=== PATIENT | female | born 1955 | race Caucasian/White ===

== ENCOUNTER 2018-10-10 21:54 | Inpatient (IN) | payer OTHER ==
[~2018-10-10] VITALS: Ht 167.6 cm; Wt 102.3 kg
[2018-10-10 21:58] VITALS: Ht 167.6 cm; Wt 102.3 kg
--- NOTE | 2018-10-10 21:58 | NUR ---
PT BIB SURGICAL RN WITH C/C OF CHEST PAIN X 2 HRS RADIATING TO R NECK UNPROVOKED. [facility] GAVE ASPRINE AND ONE NITRO PLACED 20GAUGE TO RIGHT FOREARM. PT EXPRESSED MILD NAUSEA AT TIME DENEIS CAURRENTLY. DENIES RECENT SICKNESS VOMITING OR DIAHRREA. PT A/O X 4 SPEECH MOOD AFFECT WNL, RESPIRATIONS E/U 5/10 PAIN TO MID CHEST. SPEAKS IN CLEAR AND CONCISE SENTENCES. SKIN WARM AND DRY. VERLAIZED HX OF DM HTN, ANXIETY. PT PLACED ON HEAD BANDER AND LINER OPERATOR EKG IN PROCESS. WILL CONTINUE TO MONITOR AND AWAITE MSE.
--- NOTE | 2018-10-10 22:04 | NUR ---
DR JAMES AT BEDSIDE
[2018-10-10 22:35] LABS: BASOPHIL % 0.7 % (0-2); RED CELL DISTRIBUTION WIDTH 13.9 % (11.5-14.5)
[2018-10-10 22:36] LABS: PLATELET COUNT 509 x10^3mcL (130-400)
[2018-10-10 22:47] LABS: CALCIUM 8.7 mg/dL (8.5-10.1); CARBON DIOXIDE 27.9 mmol/L (21-32); CHLORIDE SERUM 102 mmol/L (98-107); CREATININE SERUM 0.9 mg/dL (0.6-1.0); GFR1 > 60 mL/min; GLUCOSE SERUM 111 mg/dL (74-106); POTASSIUM SERUM 3.9 mmol/L (3.5-5.1); SODIUM SERUM 139 mmol/L (136-145)
[2018-10-10 22:51] LABS: ALKALINE PHOSPHATASE 141 U/L (46-116); ALT/SGPT 44 U/L (14-59); AST/SGOT 90 U/L (15-37); BILIRUBIN TOTAL 0.3 mg/dL (0.20-1.00); LIPASE 446 IU/L (73-393)
[2018-10-10 22:52] LABS: ALBUMIN 3.2 g/dL (3.4-5.0); TOTAL PROTEIN, SERUM 8.9 g/dL (6.4-8.2)
[2018-10-11] MEDS ORDERED: AMLODIPINE-OLM1 EAC1 (01:04)
[2018-10-11] MEDS ORDERED: LOT10 PO (01:05)
[2018-10-11] MEDS ORDERED: TOPROL XL25 MG PO (01:05)
[2018-10-11] MEDS ORDERED: VALACYCLOVIR H500 MG PO (01:06)
[2018-10-11] MEDS ORDERED: TRULICITY0.75 MG/0. SC (01:06)
[2018-10-11] MEDS ORDERED: VENLAFAXINE225 M1 PO (01:07)
[2018-10-11] MEDS ORDERED: VENTOLIN H0.09 MG/A1 INH (01:07)
[2018-10-11] MEDS ORDERED: XARELTO10 M1 PO (01:08)
[2018-10-11 01:29] LABS: microscopic required? YES; urine erythrocyte NEGATIVE (NEGATIVE)
[2018-10-11 01:38] LABS: AMPHETAMINE QUAL UR NONE DETECTED (See below)
--- NOTE | 2018-10-11 01:39 | NUR ---
PT SITTING WITH DAUGHTER AT BEDSIDE NAD RESPRIATONS E/U. URING COLLECTED AND SENT TO LAB. ADMITTING MD AT BEDSIDE
[2018-10-11 01:46] LABS: FREE T4 0.82 ng/dL (0.76-1.46); FREE THYROXINE INDEX 1.7 ug/dL (1.4-4.5); T4(THYROXINE) 5.1 ug/dL (4.7-13.3)
[2018-10-11 02:01] LABS: CHOLESTEROL/HDL RATIO 2.8; MAGNESIUM 2.2 mg/dL (1.8-2.4); PHOSPHOROUS 3.4 mg/dL (2.5-4.9)
[2018-10-11 02:27] LABS: T3 TOTAL 0.92 ng/mL
--- NOTE | 2018-10-11 05:07 | NUR ---
PT LYING ON LEFT SD, LAB AT BEDSIDE. NAD RESPIRATIONS E/U. WILL CONTINUE TO MONITOR
--- NOTE | 2018-10-11 06:48 | NUR ---
MEDICATION GIVEN PER ORDERS BS TAKEN. VITALS STABLE NAD RESPIRATION E/U
--- NOTE | 2018-10-11 08:00 | NUR ---
RECEIVED REPORT FROM MILY IN ER.
--- NOTE | 2018-10-11 08:00 | NUR ---
REPORT GIVEN TO [facility] TO ASSUME CARE OF PT NAD, RESPIRATIONS E/U.
--- NOTE | 2018-10-11 08:30 | NUR ---
PT ARRIVED FROM ED VIA [facility] ACCOMPANIED BY RN. Jessenia/NATHALIA. TELE#21 PLACED ON PT. RESPIRATIONS EQUAL AND UNLABORED ON RA. PT DENIES ANY CHEST PAIN/PRESSURE AT THIS TIME. IV TO RFA PATENT AND INFUSING. NO REDNESS OR SWELLING NOTED. PT DENIES ANY PAIN AT THIS TIME. WILL CONTINUE TO MONITOR. CALL LIGHT IN REACH. BED IN LOWEST POSITION.
[2018-10-11 08:37] VITALS: BP 127/67
--- NOTE | 2018-10-11 09:30 | NUR ---
PT IN BED RESTING. NO ACUTE RESP DISTRESS NOTED ON RA. PT DENIES ANY CHEST PAIN/PRESSURE AT THIS TIME. DR. ORR AT BEDSIDE INFORMING PT IS OKAY TO BE DISCHARGED LATER TODAY. PT VERBALIZED UNDERSTANDING. GIVEN PO MEDS. TOLERATED WELL. WILL CONTINUE TO MONITOR. CALL LIGHT IN REACH. BED IN LOWEST POSITION.
[2018-10-11 12:05] VITALS: BP 128/66
--- NOTE | 2018-10-11 12:33 | NUR ---
PT SITTING UP IN BED. DAUGHTER AT BEDSIDE. NO ACUTE RESP DISTRESS NOTED ON RA. PT DENIES ANY CHEST PAIN/PRESSURE AT THIS TIME. LAB AT BEDSIDE. BLOOD SUGAR CHECKED 86. NO COVERAGED NEEDED. WILL CONTINUE TO MONITOR. CALL LIGHT IN REACH. BED IN LOWEST POSITION.
[2018-10-11 13:23] VITALS: BP 128/66
[2018-10-11 16:41] VITALS: BP 133/56
--- NOTE | 2018-10-11 17:24 | NUR ---
PT SITTING UP IN BED. PT DENIES ANY CHEST PAIN/PRESSURE AT THIS TIME. PT GIVEN DISCHARGE INSTRUCTIONS. PT ENCOURAGED TO CONTINUE HOME MEDICATIONS PRESCRIBED. PT ENCOURAGED TO MAKE A FOLLOW UP APPOINTMENT WITH PCP WITHIN 1 WEEK OF DISCHARGE. PT ENCOURAGED TO MAKE AN APPOINTMENT TO SEE MANAGER TRANSIT WITHIN 1 WEEK OF DISCHARGE. PT VERBALIZED UNDERSTANDING. PT GIVEN EDUCATION REGARDING DM, XARELTO, CHEST PAIN, AND GERD. ALL QUESTIONS AND CONCERNS ADDRESSED. IV TO RAC REMOVED CATHETER INTACT. NO REDNESS OR SWELLING NOTED. TELE# 21 RETURNED TO DYEING MACHINE FEEDER FROILAN. PT TAKEN OFF FLOOR BY ÓSCAR GUTIERREZ VIA WHEELCHAIR.
== END 2018-10-11 17:26 | disposition home or self-care (01) | DRG 392 ==
LOC: ED 21:54 → DU 10-11 00:48
PROVIDERS: Emergency Medicine; ADMIT Family Medicine
DX: K21.9 Gastro-esophageal reflux disease without esophagitis (principal); N39.0 Urinary tract infection, site not specified; E44.1 Mild protein-calorie malnutrition; F32.9 Major depressive disorder, single episode, unspecified; I10 Essential (primary) hypertension; I48.2 Chronic atrial fibrillation; E11.65 Type 2 diabetes mellitus with hyperglycemia; J45.909 Unspecified asthma, uncomplicated; E66.9 Obesity, unspecified; Z68.35 Body mass index [BMI] 35.0-35.9, adult; Z98.84 Bariatric surgery status; Z79.01 Long term (current) use of anticoagulants
CPT/HCPCS: 82962; 84439; J3535; J7030; Q0092

== ENCOUNTER 2019-01-01 22:09 | Inpatient (IN) | payer OTHER ==
[~2019-01-01] VITALS: Ht 167.6 cm; Wt 103.6 kg
[~2019-01-01 22:09] MED LIST: AMLODIPINE-OLM1 EAC1; LOT10 PO; TOPROL XL25 MG PO; TRULICITY0.75 MG/0. SC; VALACYCLOVIR H500 MG PO; VENLAFAXINE225 M1 PO; VENTOLIN H0.09 MG/A1 INH; XARELTO10 M1 PO
[2019-01-01 22:13] VITALS: Ht 167.6 cm; Wt 103.6 kg
--- NOTE | 2019-01-01 22:20 | NUR ---
EKG IN PROGRESS IN TRIAGE.
[2019-01-01 23:37] LABS: PLATELET COUNT 523 x10^3mcL (130-400)
[2019-01-01 23:46] LABS: MONOCYTE 10 % (0-7); SEGMENTED NEUTROPHILS 77 % (37-75)
[2019-01-01 23:48] LABS: CARBON DIOXIDE 29.3 mmol/L (21-32); CHLORIDE SERUM 95 mmol/L (98-107); CREATININE SERUM 0.9 mg/dL (0.6-1.0); GFR1 > 60 mL/min; GLUCOSE SERUM 114 mg/dL (74-106); POTASSIUM SERUM 3.6 mmol/L (3.5-5.1); SODIUM SERUM 132 mmol/L (136-145)
[2019-01-01 23:49] LABS: PLATELET MORPHOLOGY PLATELETS INCREASED; rbc morphology (normal/abnorm) NORMAL (NORMAL)
--- NOTE | 2019-01-01 23:50 | NUR ---
PT RESTING ON GURNEY IN NAD. BREATHING EVEN AND UNLABORED. PT A&0X4, SPEAKING FULL CLEAR SENTENCES. FAMILY AT BEDSIDE. WILL CONTINUE TO MONITOR.
[2019-01-02 00:01] LABS: ALBUMIN 3.4 g/dL (3.4-5.0); ALKALINE PHOSPHATASE 111 U/L (46-116); ALT/SGPT 20 U/L (14-59); AMYLASE 74 U/L (25-115); AST/SGOT 15 U/L (15-37); BILIRUBIN TOTAL 0.5 mg/dL (0.20-1.00); LIPASE 150 IU/L (73-393); MAGNESIUM 1.8 mg/dL (1.8-2.4); T4(THYROXINE) 4.8 ug/dL (4.7-13.3)
--- NOTE | 2019-01-02 00:02 | NUR ---
LAB AT BEDSIDE.
[2019-01-02 00:08] LABS: CHOLESTEROL 118 mg/dL (<200); HDL CHOLESTEROL 67 mg/dL (40-60); TOTAL PROTEIN, SERUM 8.6 g/dL (6.4-8.2)
[2019-01-02 00:26] LABS: UA SPECIFIC GRAVITY <=1.005 (1.005-1.035); microscopic required? YES; urine erythrocyte 2+ (NEGATIVE)
[2019-01-02 00:35] LABS: AMPHETAMINE QUAL UR NONE DETECTED (See below)
--- NOTE | 2019-01-02 00:51 | NUR ---
SECOND BOLUS OF FLUID STARTED AT 0037 BP 132/55 P-73 100% 1ST BOLUS STILL RUNNING. NO S/S OF DISTRESS. PT IS AWAKE ALERT AND ORIENTED. PT GIVEN TWO WARM BLANKETS. PILLOW GIVEN FOR KNEE AND DAUGHTER AT BEDSIDE FOR COMFORT. NO S/S OF DISTRESS
[2019-01-02] MEDS ORDERED: VALACYCLOVIR H500 MG PO (01:22)
[2019-01-02] MEDS ORDERED: SIMVASTATIN20 M1 PO (01:22)
[2019-01-02] MEDS ORDERED: ATIVAN0.5 M1 PO (01:23)
[2019-01-02] MEDS ORDERED: VITA-BEE WITH1 EACH (01:23)
[2019-01-02] MEDS ORDERED: D3-50001 TAB PO (01:24)
[2019-01-02] MEDS ORDERED: VITAMIN B121000 MCG PO (01:24)
--- NOTE | 2019-01-02 01:30 | NUR ---
PT ASSISTED ONTO BEDSIDE COMMODE. PT DENIED DIZZINESS AND MAINTAINED STEADY GAIT.
--- NOTE | 2019-01-02 01:50 | NUR ---
REPORT CALLED TO EDEN KING
--- NOTE | 2019-01-02 02:00 | NUR ---
PT TRANSFERED VIA GURNEY AT THIS TIME BY MYSELF AND LADI EMT. PT A&0X4, SPEAKING FULL CLEAR SENTENCES. BREATHING EVEN AND UNLABORED. PT VERBALIZED UNDERSTANDING OF PLAN OF CARE. IV FLUIDS ENDORSED TO EDEN KING. PT ASSISTED TO RESTROOM, AMBULATED WITH STEADY GAIT. EDEN KING AT BEDSIDE TO ASSUME CARE OF PT. PT ACCOMPANIED BY DAUGHTER.
--- NOTE | 2019-01-02 02:30 | NUR ---
RECEIVED PT FROM ED VIA [facility] ACCOMPANIED BY RN. PT ABLE TO AMBULATE FROM [facility] TO THE BED WITH ASSIST. DAUGHTER AT BEDSIDE. ORIENTED PT TO ROOM AND SURROUNDING. EVEN AND UNLABORED RESPIRATION NOTED ON RA. C/O NAUSEA AND DIZZINESS, WILL MEDICATE PER EMAR. TELE #24 APPLIED READING SR 86. IV PATENT AND INTACT RUNNING FLUIDS PER EMAR. PT C/O ANXIETY DUE TO CURRENT SITUATION AND HOSPITAL STAY. MADE AWARE. WILL MEDICATE PER EMAR. BED IN LOWEST POSITION. SIDE RAILS UPX2. CALL LIGHT WITHIN REACH. WILL CONTINUE TO MONITOR.
[2019-01-02 02:50] VITALS: BP 155/63
[2019-01-02 05:40] VITALS: BP 145/72
--- NOTE | 2019-01-02 06:36 | NUR ---
PT SLEPT COMFORTABLY THROUGHTOUT THE SHIFT. NO ACUTE CHANGES NOTED. EVEN AND UNLABORED RESPIRATIONS ON RA. ON TELE #24 READING SR 78. IV PATENT AND INTACT RUNNING FLUIDS PER EMAR. ALL NEEDS TENDED TO AND MET. ALL SCHEDULED MEDICATIONS GIVEN. C/O NAUSEA AND ANXIETY MEDICATED PER EMAR. BLOOD SUGAR 121, NO INSULIN COVERAGE NEEDED. BED IN LOWEST POSITION. SIDE RAILS UPX2. CALL LIGHT WITHIN REACH. WILL ENDORSE TO ONCOMING SHIFT.
[2019-01-02 06:44] LABS: BASOPHIL % 0.3 % (0-2); RED CELL DISTRIBUTION WIDTH 13.8 % (11.5-14.5)
[2019-01-02 07:30] VITALS: BP 136/61
--- NOTE | 2019-01-02 07:30 | NUR ---
PT ENDORSE TO ME THIS MORNING. SITTING UP IN BED RESTING/ JUST WALKED BACK FROM BATHROOM. AA/O X4. BREATHING EVEN AND UNLABORED ON RA, NO ACUTE RESP DISTRESS OR SOB NOTED. TELE 24 SR NOTED HR 84, DENIES ANY CP OR PRESSURE. LAST BM 01/01 FORMED. VOIDS FREELY. IV TO THE L HAND INTACT AND PATENT INFUSING AT 100ML/HR, NO REDNESS OR SWELLING NOTED. WILL CONTINUE TO MONITOR.
[2019-01-02 07:36] LABS: CALCIUM 8.5 mg/dL (8.5-10.1); CARBON DIOXIDE 24.4 mmol/L (21-32); CHLORIDE SERUM 100 mmol/L (98-107); CREATININE SERUM 0.8 mg/dL (0.6-1.0); GFR1 > 60 mL/min; GLUCOSE SERUM 135 mg/dL (74-106); POTASSIUM SERUM 4.2 mmol/L (3.5-5.1); SODIUM SERUM 137 mmol/L (136-145)
[2019-01-02 07:58] LABS: PLATELET COUNT 427 x10^3mcL (130-400)
--- NOTE | 2019-01-02 08:00 | NUR ---
PT C/O OF FEELING N/V, MEDICATED PER EMAR. WILL CONTINUE TO MONITOR.
[2019-01-02 12:00] VITALS: BP 121/63
--- NOTE | 2019-01-02 15:05 | NUR ---
PT REQUESTING TO AMBULATE AROUND THE UNIT. EDUCATED PT ON SAFETY OF IV AND TO CALL FOR HELP WHEN WALKING IF NEEDE. WALKED AROUND UNIT WITH PT. PT DENIES ANY NAUSEA, SOB, DIZZINESS OR WEAKNESS. PT WALKED AROUND UNIT ONE TIME AND STATED WILL REST BUT WILL CONITNUE TO WALK AROUND UNIT THROUGHOUT THE DAY. CALL LIGHT WITHIN REACH. WILL CONTINUE TO MONITOR.
[2019-01-02] MEDS ORDERED: LEVOFLOXACIN500 M1 PO ×2 (15:12→15:41)
[2019-01-02 16:15] VITALS: BP 124/68
[2019-01-02 16:17] VITALS: BP 124/68
--- NOTE | 2019-01-02 18:27 | NUR ---
PT AWAKE, ALERT AND ORIENTED AT TIME OF DISCHARGE. PT LOOKS TO BE IN NO ACUTE DISTRESS AND DENIES ANY PAIN AT TIME OF DISCHARGE. PT DISCHARGED HOME AND WENT TO LOBBY VIA WHEELCHAIR ACCOMPANIED BY NURSE AND FAMILY MEMBER WITH BELSTEVENS IN HAND. PROVIDED PT WITH EDUCATION AND PRESCRIPTIONS. INFOMRED PT OF THE NEED TO FINISH FULL COURSE OF ANTIBIOTICS, PT VERBALIZED UNDERSTANDING. INFORMED PT OF THE NEED TO MAKE A FOLLOW UP APPOINTMENT WITH PCP WITHIN 1 WEEK OF DISCHARGE. PT VERBALIZED UNDERSTANDING. IV CATHETER REMOVED AND CATHETER FULLY INTACT. ALL QUESTIONS AND CONCERNS ADDRESSED.
== END 2019-01-02 18:21 | disposition home or self-care (01) | DRG 872 ==
LOC: ED 22:09 → DU 01-02 00:58 → MU 01-02 12:50
PROVIDERS: Emergency Medicine; ADMIT Internal Medicine
DX: A41.9 Sepsis, unspecified organism (principal); N39.0 Urinary tract infection, site not specified; E87.1 Hypo-osmolality and hyponatremia; E11.9 Type 2 diabetes mellitus without complications; I48.2 Chronic atrial fibrillation; F32.9 Major depressive disorder, single episode, unspecified; F41.9 Anxiety disorder, unspecified; I10 Essential (primary) hypertension; E66.9 Obesity, unspecified; Z79.01 Long term (current) use of anticoagulants; Z98.84 Bariatric surgery status; Z79.84 Long term (current) use of oral hypoglycemic drugs
CPT/HCPCS: 82962; 83880; G0378; G0480; J0696; J1956; J2405; J7030; Q0092

== ENCOUNTER 2019-01-09 17:34 | Emergency (ER) | payer OTHER ==
[~2019-01-09] VITALS: Ht 167.6 cm; Wt 101.2 kg
[~2019-01-09 17:34] MED LIST changes: +ATIVAN0.5 M1 PO; +D3-50001 TAB PO; +LEVOFLOXACIN500 M1 PO; +SIMVASTATIN20 M1 PO; +VITA-BEE WITH1 EACH; +VITAMIN B121000 MCG PO
[2019-01-09 17:42] VITALS: Ht 167.6 cm; Wt 101.2 kg
[2019-01-09 19:38] LABS: microscopic required? YES; urine erythrocyte 3+ (NEGATIVE)
[2019-01-09 19:55] LABS: BASOPHIL % 0.6 % (0-2)
[2019-01-09 20:03] LABS: RED CELL DISTRIBUTION WIDTH 14.6 % (11.5-14.5)
[2019-01-09 20:04] LABS: PLATELET COUNT 591 x10^3mcL (130-400)
[2019-01-09 20:06] LABS: CALCIUM 9.3 mg/dL (8.5-10.1); CHLORIDE SERUM 101 mmol/L (98-107); CREATININE SERUM 0.9 mg/dL (0.6-1.0); GFR1 > 60 mL/min; GLUCOSE SERUM 102 mg/dL (74-106); POTASSIUM SERUM 4.6 mmol/L (3.5-5.1); SODIUM SERUM 139 mmol/L (136-145)
[2019-01-09 21:58] VITALS: BP 129/66
== END 2019-01-09 21:58 | disposition home or self-care (01) ==
LOC: ED 17:34
PROVIDERS: Specialist
DX: N93.9 Abnormal uterine and vaginal bleeding, unspecified (principal); Z88.2 Allergy status to sulfonamides; Z88.1 Allergy status to other antibiotic agents; Z88.8 Allergy status to other drugs, medicaments and biological substances; F41.9 Anxiety disorder, unspecified; E11.9 Type 2 diabetes mellitus without complications
CPT/HCPCS: 36415; Q0092